=== PATIENT | female | born 1945 | race African-American/Black ===

== ENCOUNTER 2019-10-01 15:52 | IRF | payer MEDICARE, SELFPAY ==
--- NOTE | 2019-10-01 15:55 | ADMGEN ---
This patient, Sarah Ceja, was admitted to [facility] Room 219-02. Patient/family oriented to hospital policies and general routines including ID bracelet, bed and alarms, visiting hours, pain management, procedures, bathroom and other care routines, personal items, smoking policy, room service/diet, and visiting hours. Valuables list has been completed. Information on how to activate the Rapid Response Team has been discussed. Patient/Family are encouraged to report perceived risks to care and to ask questions if they do not understand what they are told or what they should do.
[2019-10-01 16:11] VITALS: BP 147/72; PULSE 92; RESP 19; TEMP 36.8; O2SAT 99; BMI 33.0
[2019-10-01 21:54] VITALS: BP 139/66; PULSE 95; RESP 20; TEMP 36.9; O2SAT 93
[2019-10-02 04:50] LABS: Basophils Percent Auto 0.5 % (0.2-1.2); Hematocrit 39.8 % (37.0-47.0); Hemoglobin 13.2 g/dL (12.0-15.0); Immature Granulocyte Absolute 0.01 K/mm3 (0.00-0.031); Immature Granulocyte Percent A 0.2 % (0-0.5); Lymphocytes Absolute Auto 1.72 K/mm3 (0.9-3.2); Lymphocytes Percent Auto 26.6 % (18.3-44.2); Mean Corpuscular HGB Conc 33.2 g/dl (32-36); Mean Corpuscular Hemoglobin 28.6 pg (26-34); Mean Corpuscular Volume 86.3 fl (80-100); Mean Platelet Volume 9.9 fl (7.4-10.4); Monocytes Absolute Auto 0.5 K/mm3 (0.1-0.6); Monocytes Percent Auto 7.3 % (2.6-8.5); Neutrophils Absolute Auto 4.2 K/mm3 (1.3-6.7); Neutrophils Percent Auto 65.4 % (45.5-73.1); Platelet Count Result 155 k/mm3 (150-375); Red Blood Count 4.61 M/mm3 (4.2-5.4); Red Cell Distribution Width 14.9 % (11.5-14.5); White Blood Count 6.5 K/mm3 (4.5-10.0)
[2019-10-02 05:08] LABS: Blood Urea Nitrogen 22 mg/dL (7-17); Calcium 8.8 mg/dL (8.4-10.2); Carbon Dioxide 26 mmol/L (22-30); Chloride 105 mmol/L (98-107); Cholesterol 146 mg/dL (0-200); Estimated CRCL calculation 53 ml/min; Estimated Glomerular Filt Rate > 60; Glucose 101 mg/dL (65-105); HDL Direct 37 mg/dL; Sodium 139 mmol/L (137-145); Triglycerides 49 mg/dL (<150)
[2019-10-02 05:18] LABS: LDL Cholesterol Direct 90 mg/dL
[2019-10-02 06:00] VITALS: BP 127/66; PULSE 80; RESP 20; TEMP 36.6; O2SAT 99
[2019-10-02] MEDS: AMLODIPINE BESYLATE 5 MG TABLET PO (09:45)
--- NOTE | 2019-10-02 11:30 | WPDREHABHP ---
H&P: HPI History of Present Illness Chief complaint: stroke Narrative: Sarah Chun OF PRESENT ILLNESS: The patient's primary rehab impairment category is 0 1-stool The etiologic diagnosis is left basal ganglia /thalamic intracranial hemorrhage with intraventricular extension/hemorrhage I saw this patient [id number] on October 02, 2019 at 11:30 a.m. and The patient is a 73-year-old right-handed Afro [place] woman with a past medical history of hypertension ( not needing medication ) who presented to a local hospital with slurring of the speech and right-sided weakness. Daughter reported the patient was found on the ground outside her house. The head CT demonstrated an intraparenchymal hemorrhage with intraventricular extension. She was transferred to [facility] on September 24, 2019. Repeat CT confirmed hemorrhage involving the left sheppard radiata, left basal ganglia, and thalamic hemorrhage with intraventricular extension, minimal rightward shift and mild mass effect. CTA showed no evidence of vascular abnormality predated Neurosurgery and Neurology were consulted. Neurology place the patient on Keppra 500 milligram twice a day for seizure prophylaxis. She was also started on a new antihypertensive medication. Neurosurgery admitted the patient to ICU for neuro checks and hydrocephalus watch. Patient was eventually taken off of seizure prophylaxis. She passed her bedside swallow test and is on a regular diet. She will need monitoring of blood pressure in the setting of new blood pressure medications with possible adverse reactions. Neurological function needs to be monitor in the setting of brain hemorrhage for possible extension, edema, and/or herniation. Physical examination continues to reveal right-sided weakness balance impairment dysarthria expressive aphasia decreased gross motor control and decreased safety awareness. This examiner has to look into the chart further were kind of DVT prophylaxis [facility] was giving it to her Therapy was initiated at the acute care facility and the patient transferred to us from [facility] on October 01, 2019 on October 01, 2019 FALLS OR SURGERIES: The patient has had no major surgeries in the 100 days prior to admission. They had no falls in the past year. They had no falls with injury in the past year. PAST MEDICAL HISTORY: hypertension PAST SURGICAL HISTORY: total hip arthroplasty SOCIAL HISTORY: the patient lives independently in a 1 level home with 5 steps to enter. She was completely independent prior and uses single-point cane for ambulation only to go up and down stairs. Her daughters were present for interview with the patient was screened and can assist patient following rehabilitation if necessary. The patient had a fall this hospitalization but no major surgeries. FAMILY HISTORY: Will be obtained from the family members when they are available PRIOR LEVEL OF FUNCTION: Eating was INDEPENDENT Oral Care was INDEPENDENT Toileting Hygiene was INDEPENDENT Shower/Bathing was INDEPENDENT Upper Body Dressing was INDEPENDENT Lower Body Dressing was INDEPENDENT Donning/[place] Footwear was INDEPENDENT Rolling Left and Right was INDEPENDENT Sit to Lying was INDEPENDENT Lying to Sitting was INDEPENDENT Sit to Stand was INDEPENDENT Bed to Chair Transfers was INDEPENDENT Toilet Transfers was INDEPENDENT Walking was INDEPENDENT 750 feet with NO DEVICE Wheelchair Mobility was NOT APPLICABLE PRIOR TO ADMISSION Stairs were INDEPENDENT CURRENT LEVEL OF FUNCTION: Eating was independent Oral Care was partial or more assistance Toileting Hygiene was partial or more assistance Shower/Bathing was substantial/maximal assistance Upper Body Dressing was partial or more assistance Lower Body Dressing was substantial/maximal assistance Donning/[place] Footwear was dependent Rolling Left and Right was partial
[2019-10-02 14:00] VITALS: BP 132/73; PULSE 89; RESP 22; TEMP 36.6; O2SAT 100
[2019-10-02 14:02] VITALS: BMI 33.0
--- NOTE | 2019-10-02 15:14 | PCCCNOTE ---
On 10/02/19, the student, [Lino Camarena ], provided care and completed [facility] documentation on this patient. I have reviewed the student's documentation and agree with the findings.
[2019-10-02 21:44] VITALS: BP 130/76; PULSE 90; RESP 18; TEMP 36.3; O2SAT 99
[2019-10-03 05:59] VITALS: BP 129/75; PULSE 84; RESP 18; TEMP 36.2; O2SAT 99
[2019-10-03] MEDS: AMLODIPINE BESYLATE 5 MG TABLET PO (09:14)
--- NOTE | 2019-10-03 13:21 | P.PNNERE_ITS ---
Subjective Date/time seen: 10/03/19 13:21 Interval history: patient is here with the left hemispheric stroke with right- sided moderately severe hemiparesis along with expressive aphasia She does not have any new neurological complaints in particular she denies any headache chest pain shortness of breath double vision blurred vision fever chills sore throat abdominal pain or diarrhea Review of Systems Review of Systems: All systems reviewed & are unremarkable except as noted in HPI and below Exam Const: General: comfortable and no acute distress HENMT: General nose exam: Normal nares present Mouth: Yes moist mucous membranes Eyes: General: appearance normal, both eyes and all related structures Neck: Neck: supple and no JVD Resp: Effort & Inspection: normal respiratory effort Auscultation: clear to auscultation bilaterally Cardio: Rate: regular rate Rhythm: regular rhythm GI: GI Palp: Yes Soft to palpation Auscultation: normal bowel sounds Skin: General skin exam: normal color and no rashes or lesions noted Neuro: Other: patient is awake and alert and well oriented does have expressive aphasia and right-sided moderately severe hemiparesis Extrem: General: normal to inspection Objective Data Vital Signs Vital Signs: Vital Signs - 24 hr 10/02/19 14:00 10/02/19 21:44 10/03/19 05:59 Temperature 36.6 C 36.3 C L 36.2 C L Pulse Rate 89 90 84 Respiratory Rate 22 H 18 18 Blood Pressure 132/73 130/76 129/75 Pulse Oximetry 100 99 99 Intake/Output Intake/Output: Intake & Output 09/30/19 10/01/19 10/02/19 10/03/19 23:59 23:59 23:59 23:59 Intake Total 240 240 240 Balance 240 240 240 Meds/Results Medications: Active Medications Generic Name Dose Route Start Last Admin Trade Name Freq PRN Reason Stop Dose Admin Acetaminophen 650 mg 10/01/19 17:30 Tylenol Tablet PO Q6H PRN Pain Amlodipine Besylate 5 mg 10/02/19 09:00 10/03/19 09:14 Norvasc PO 5 mg DAILY PAYTON Administration Bisacodyl 10 mg 10/01/19 17:30 Dulcolax Suppository RECTAL DAILY PRN Constipation Progress Note: A&P Assessment and Plan (1) Hypertension: Code(s): I10 - Essential (primary) hypertension Status: Acute (2) Hemiparesis of right dominant side: Code(s): G81.91 - Hemiplegia, unspecified affecting right dominant side Status: Acute (3) Expressive aphasia: Code(s): R47.01 - Aphasia Status: Acute (4) Intracranial hemorrhage: Code(s): I62.9 - Nontraumatic intracranial hemorrhage, unspecified Status: Acute Additional Plan continue present medical management physical therapy is speech therapy and occupational therapy along with gait training
[2019-10-03 14:00] VITALS: BP 136/68; PULSE 82; RESP 18; TEMP 36.3; O2SAT 96
--- NOTE | 2019-10-03 16:11 | RPD ---
INDIVIDUALIZED PLAN OF CARE FOR Sarah Ceja Brief Synthesis of Pre-Admission Screen, Post-Admission Evaluation and Therapy Evaluations: The patient presents to rehab with right basal ganglia/thalamic intracranial hemorrhage with intraventricular hemorrhage. Comorbidities include hypertension, dysarthria, hyperlipidemia, weakness. The patient requires physician services for neurology services, medical oversight, and coordination of care. The patient needs physician monitoring and treatment of new hypertension, monitoring for adverse reactions to new medications, cerebral edema, monitoring for infection, and pain control. The patient requires nursing services for frequent neuro checks, anticoagulation therapy, medication management and education, pressure relief and skin care management, monitoring of labs, and education, and fall/safety precautions. Deficits include:ADLs, Balance, Endurance, Mobility, Pain Management, ROM, Safety, Speech, Strength, Transfers Seo Assistant/Case Management for: Discharge Planning and Patient/Family Counseling Physical Therapy: 5 days per week for 75 minutes. Treatments may include: Therapeutic Exercise, Gait Training, Neuromuscular Re-education, Transfer Training, Community Reintegration, Bed Mobility, Patient/Family Education, Wheelchair Mobility Group Therapy/Concurrent Therapy Rationales: -Improve attention span during functional activities in a distracted environment. -Enhance problem solving and/or adequate judgment skills during functional activities in a distracted environment. -Promote increased safety awareness in a distracted environment to reduce fall risk with functional tasks, transfers, and ambulation to allow a more safe, self-sufficient return to the home environment. -Improve dynamic balance skills to promote safety and independence with functional activities in a distracted environment for maximum gain. Occupational Therapy: 5 days per week for 75 minutes. Treatments may include: Therapeutic Exercise, Therapeutic Activity, Cognitive Training, Self-Care Transfer Training, Community Reintegration, Home Management, Patient/Family Education, Wheelchair Mobility Training, Energy Conservation Training Group Therapy/Concurrent Therapy Rationales: -Allow therapist to observe and teach generalization and carry-over of skills learned in individual therapy. -Enhance problem solving and sequencing skills during therapeutic activities in a distracted environment. -Promote increased safety awareness in a realistic setting to reduce fall risk with functional tasks due to visual and verbal distractions. -Increase functional level with ADLs, ADL transfers and use of adaptive equipment through therapeutic activities with others while promoting safety to allow a more safe, self-sufficient return home. Speech Therapy: 5 days per week for 30 minutes. Treatments may include: Dysphasia Therapy, Speech/Language/Communication Therapy, Cognitive Training, Patient/Family Education Group Therapy/Concurrent Therapy - Rationale: -Allow therapist to observe and teach generalization and carry-over of skills learned in individual therapy. -Improve comprehension skills with complex or abstract ideas through discussion in a realistic setting. -Enhance problem solving skills with complex issues during activities in a distracted environment. -Promote increased memory skills and concentration in a distracted environment for a safe transition home. -Improve attention and focus with language/communication skills in a realistic and supportive therapeutic setting. -Allow for practice of expression of basic needs and ideas through functional activities with others. Medical Prognosis: Good Anticipated Length of Stay: 12 days Rehab Goals: Eating Goal: 06-Independent Oral Hygiene Goal: 06-Independent Toileting Hygiene Goal: 03-Partial/Moderate Assistance Shower/Bathe Self Goal: 03-Partial/Moderate Assistance Upper Body Dressing Goal: 05-Se
[2019-10-03 21:14] VITALS: BP 128/70; PULSE 91; RESP 16; TEMP 36.8; O2SAT 98
[2019-10-04 06:00] VITALS: BP 128/79; PULSE 83; RESP 16; TEMP 36.5; O2SAT 100
[2019-10-04] MEDS: AMLODIPINE BESYLATE 5 MG TABLET PO (08:23)
--- NOTE | 2019-10-04 12:03 | WPDNEURORHBP ---
Subjective Date/time seen: 10/04/19 12:03 Interval history: this 73-year-old woman is here because of left-sided intracranial hemorrhage with right-sided hemiparesis and expressive aphasia she is doing fairly well denies any headache nausea vomiting chest pain shortness of breath fever chills sore throat she is quite motivated engage in therapy Review of Systems Review of Systems: All systems reviewed & are unremarkable except as noted in HPI and below Constitutional: Constitutional: Reports no additional constitutional complaints Eyes: Eyes: Reports no additional eye complaints ENT: Reports system reviewed and no additional complaints, except as documented Cardiovascular: Cardiovascular: Reports no additional cardiovascular complaints Respiratory: Respiratory: Reports no additional respiratory complaints Gastrointestinal: Gastrointestinal: Reports no additional gastrointestinal complaints Genitourinary: Genitourinary: Reports no additional female genitourinary complaints Musculoskeletal: Musculoskeletal: Reports no additional musculoskeletal complaints Integumentary/Breasts: Skin/Breast: Reports system reviewed and no additional complaints, except as docu Neurologic: Reports system reviewed and no additional complaints, except as documented Psychiatric: Psychiatric: Reports no additional psychiatric complaints Exam Const: General: comfortable and no acute distress HENMT: General nose exam: Normal nares present Mouth: Yes moist mucous membranes Eyes: General: appearance normal, both eyes and all related structures Neck: Neck: supple and no JVD Resp: Effort & Inspection: normal respiratory effort Auscultation: clear to auscultation bilaterally Cardio: Rate: regular rate Rhythm: regular rhythm GI: GI Palp: Yes Soft to palpation Auscultation: normal bowel sounds Skin: General skin exam: normal color and no rashes or lesions noted Neuro: Other: patient is awake alert will oriented time place and person but has expressive aphasia and right-sided artie paresis due to intracranial hemorrhage of the left cerebral hemisphere Objective Data Vital Signs Vital Signs: Vital Signs - 24 hr 10/03/19 14:00 10/03/19 21:14 10/04/19 06:00 Temperature 36.3 C L 36.8 C 36.5 C Pulse Rate 82 91 83 Respiratory Rate 18 16 16 Blood Pressure 136/68 128/70 128/79 Pulse Oximetry 96 98 100 Intake/Output Intake/Output: Intake & Output 10/01/19 10/02/19 10/03/19 10/04/19 23:59 23:59 23:59 23:59 Intake Total 240 240 720 120 Balance 240 240 720 120 Meds/Results Medications: Active Medications Generic Name Dose Route Start Last Admin Trade Name Freq PRN Reason Stop Dose Admin Acetaminophen 650 mg 10/01/19 17:30 Tylenol Tablet PO Q6H PRN Pain Amlodipine Besylate 5 mg 10/02/19 09:00 10/04/19 08:23 Norvasc PO 5 mg DAILY PAYTON Administration Bisacodyl 10 mg 10/01/19 17:30 Dulcolax Suppository RECTAL DAILY PRN Constipation Polyethylene Glycol 17 gm 10/04/19 09:00 Miralax PO QAM PAYTON Progress Note: A&P Assessment and Plan (1) Hypertension: Code(s): I10 - Essential (primary) hypertension Status: Acute (2) Hemiparesis of right dominant side: Code(s): G81.91 - Hemiplegia, unspecified affecting right dominant side Status: Acute (3) Expressive aphasia: Code(s): R47.01 - Aphasia Status: Acute (4) Intracranial hemorrhage: Code(s): I62.9 - Nontraumatic intracranial hemorrhage, unspecified Status: Acute Additional Plan will continue with the speech therapy physical therapy of compression therapy and gait training
[2019-10-04] MEDS: polyethylene glycoL 3350 17 GM POWD.PACK PO (12:16)
[2019-10-04 14:00] VITALS: BP 122/70; PULSE 96; RESP 18; TEMP 36.8; O2SAT 100
--- NOTE | 2019-10-04 15:53 | PCCCNOTE ---
On 10/04/19, the student, [Lion Camarena ], provided care and completed [facility] documentation on this patient. I have reviewed the student's documentation and agree with the findings.
[2019-10-04 21:55] VITALS: BP 126/75; PULSE 97; RESP 20; TEMP 36.7; O2SAT 100
[2019-10-05 06:00] VITALS: BP 132/75; PULSE 84; RESP 18; TEMP 36.7; O2SAT 98
[2019-10-05] MEDS: polyethylene glycoL 3350 17 GM POWD.PACK PO (08:50)
[2019-10-05] MEDS: AMLODIPINE BESYLATE 5 MG TABLET PO (08:53)
[2019-10-05 14:00] VITALS: BP 146/78; PULSE 86; RESP 18; TEMP 36.5; O2SAT 98
--- NOTE | 2019-10-05 16:30 | WPDNEURORHBP ---
Subjective Date/time seen: feeling ok continues to have npcgyat46/21/20 16:30 Review of Systems Review of Systems: All systems reviewed & are unremarkable except as noted in HPI and below Exam Const: General: comfortable and no acute distress HENMT: Head: normal to inspection General nose exam: Normal nares present, No nasal discharge present and Abnormal mucous membranes and turbinates present Neck: Neck: full ROM Thyroid: thyroid normal Resp: Effort & Inspection: normal respiratory effort Auscultation: clear to auscultation bilaterally Cardio: Rate: regular rate Rhythm: regular rhythm GI: Auscultation: normal bowel sounds Skin: General skin exam: no rashes or lesions noted Neuro: General: oriented to person, oriented to place and moves all extremities Cranial nerves: Yes Equal, round and reactive pupils present, Yes Bilaterally intact EOM present, Yes Nystagmus not present, Yes Normal facial strength present, Yes Midline tongue present, Yes Symmetric palate elevation present, Yes Ability to bilaterally rotate head present and Yes Ability to bilaterally elevate shoulders present Cognition (Neuro): normal cognition Speech: normal speech (aphasia) Motor exam (neuro): 5/5 motor strength present throughout (right hemiparesis) and Motor abnormalities not present Sensory Exam: Sensory deficit (Neuro) (right sided) Deep tendon reflexes (DTR's): Right triceps reflex intensity grade: 2+, Rt Biceps (C5, C6): 2+, Right brachioradialis reflex intensity grade: 2+, Right patellar reflex intensity grade: 2+ and Right ankle reflex intensity grade: 2+ Plantar Reflex Responses: upgoing (positive Babinski): right Psych: Appearance: grossly normal Objective Data Vital Signs Vital Signs: Vital Signs - 24 hr 10/04/19 21:55 10/05/19 06:00 10/05/19 14:00 Temperature 36.7 C 36.7 C 36.5 C Pulse Rate 97 84 86 Respiratory Rate 20 18 18 Blood Pressure 126/75 132/75 146/78 H Pulse Oximetry 100 98 98 Intake/Output Intake/Output: Intake & Output 10/02/19 10/03/19 10/04/19 10/05/19 23:59 23:59 23:59 23:59 Intake Total 240 720 360 480 Balance 240 720 360 480 Meds/Results Medications: Active Medications Generic Name Dose Route Start Last Admin Trade Name Freq PRN Reason Stop Dose Admin Acetaminophen 650 mg 02/17/20 17:30 Tylenol Tablet PO Q6H PRN Pain Amlodipine Besylate 5 mg 10/02/19 09:00 10/05/19 08:53 Norvasc PO 5 mg DAILY PAYTON Administration Bisacodyl 10 mg 10/01/19 17:30 Dulcolax Suppository RECTAL DAILY PRN Constipation Polyethylene Glycol 17 gm 10/04/19 09:00 10/05/19 08:50 Miralax PO 17 gm QAM PAYTON Administration Progress Note: A&P Assessment and Plan (1) Hypertension: Code(s): I10 - Essential (primary) hypertension Status: Acute (2) Hemiparesis of right dominant side: Code(s): G81.91 - Hemiplegia, unspecified affecting right dominant side Status: Acute (3) Expressive aphasia: Code(s): R47.01 - Aphasia Status: Acute (4) Intracranial hemorrhage: Code(s): I62.9 - Nontraumatic intracranial hemorrhage, unspecified Status: Acute Additional Plan stable
[2019-10-05 22:00] VITALS: BP 126/62; PULSE 94; RESP 18; TEMP 36.9; O2SAT 100
[2019-10-06 06:00] VITALS: BP 126/68; PULSE 78; RESP 18; TEMP 36.7; O2SAT 97
[2019-10-06] MEDS: polyethylene glycoL 3350 17 GM POWD.PACK PO (08:50)
[2019-10-06] MEDS: AMLODIPINE BESYLATE 5 MG TABLET PO (08:50)
[2019-10-06 14:00] VITALS: BP 141/67; PULSE 96; RESP 18; TEMP 36.6; O2SAT 98
[2019-10-06 21:57] VITALS: BP 128/77; PULSE 93; RESP 18; TEMP 36.6; O2SAT 98
[2019-10-07 06:00] VITALS: BP 118/56; PULSE 78; RESP 18; TEMP 36.6; O2SAT 96
[2019-10-07] MEDS: AMLODIPINE BESYLATE 5 MG TABLET PO (08:50)
[2019-10-07] MEDS: polyethylene glycoL 3350 17 GM POWD.PACK PO (08:50)
[2019-10-07 14:00] VITALS: BP 116/59; PULSE 94; RESP 16; TEMP 36.8; O2SAT 98
[2019-10-07 21:13] VITALS: BP 124/68; PULSE 77; RESP 16; TEMP 36.3; O2SAT 99
[2019-10-08 06:00] VITALS: BP 114/65; PULSE 84; RESP 16; TEMP 36.7; O2SAT 98
[2019-10-08] MEDS: AMLODIPINE BESYLATE 5 MG TABLET PO (08:30)
[2019-10-08] MEDS: polyethylene glycoL 3350 17 GM POWD.PACK PO (08:30)
--- NOTE | 2019-10-08 13:30 | PCDIET ---
Nutrition Follow-Up Complete: Suboptimal oral intake related to decreased appetite as evidenced by intake of 25% x 1, patient statements. Patient to consume 50% of meals or more Goal met. Pt consuming average of 73% of meals since 10/02. Nutrition recommendation: Recommend continuation of Regular diet to maximize pt's PO intake. Last recorded weight is 90 kg. Bowel Motility:+BM 10/06 (Incontinent at times) Labs Reviewed:(From 10/02) - Na(139), BUN(22), Cr(0.9), Glu(101) Meds Noted:Miralax, norvasc Additional Notes: Pt states appetite is good and GI related complaints. Will provide CVA ed prior to discharge. Follow up in 3 days.
[2019-10-08 14:00] VITALS: BP 118/70; PULSE 103; RESP 16; TEMP 36.6; O2SAT 98
--- NOTE | 2019-10-08 14:49 | PCNSR ---
On 10/08/19, the student, Jessenia Abel, provided care and completed [facility] documentation on this patient. I have reviewed the student's documentation and agree with the findings.
[2019-10-08 22:00] VITALS: BP 148/56; PULSE 73; RESP 18; TEMP 36.8; O2SAT 96
[2019-10-09 05:37] LABS: Basophils Percent Auto 0.2 % (0.2-1.2); Hematocrit 38.3 % (37.0-47.0); Immature Granulocyte Absolute 0.02 K/mm3 (0.00-0.031); Immature Granulocyte Percent A 0.4 % (0-0.5); Lymphocytes Absolute Auto 1.76 K/mm3 (0.9-3.2); Lymphocytes Percent Auto 31.6 % (18.3-44.2); Mean Corpuscular HGB Conc 31.3 g/dl (32-36); Mean Corpuscular Hemoglobin 27.8 pg (26-34); Mean Corpuscular Volume 88.9 fl (80-100); Mean Platelet Volume 10.3 fl (7.4-10.4); Monocytes Absolute Auto 0.5 K/mm3 (0.1-0.6); Monocytes Percent Auto 8.1 % (2.6-8.5); Neutrophils Absolute Auto 3.3 K/mm3 (1.3-6.7); Neutrophils Percent Auto 59.7 % (45.5-73.1); Platelet Count Result 160 k/mm3 (150-375); Red Blood Count 4.31 M/mm3 (4.2-5.4); Red Cell Distribution Width 14.6 % (11.5-14.5); White Blood Count 5.6 K/mm3 (4.5-10.0)
[2019-10-09 05:49] LABS: Blood Urea Nitrogen 17 mg/dL (7-17); Calcium 8.5 mg/dL (8.4-10.2); Carbon Dioxide 28 mmol/L (22-30); Chloride 105 mmol/L (98-107); Estimated CRCL calculation 52 ml/min; Estimated Glomerular Filt Rate > 60; Glucose 99 mg/dL (65-105); Potassium 4.1 mmol/L (3.4-5.0); Sodium 141 mmol/L (137-145)
[2019-10-09 06:00] VITALS: BP 123/56; PULSE 68; RESP 18; TEMP 36.7; O2SAT 97
[2019-10-09] MEDS: AMLODIPINE BESYLATE 5 MG TABLET PO (07:45)
[2019-10-09] MEDS: polyethylene glycoL 3350 17 GM POWD.PACK PO (07:45)
--- NOTE | 2019-10-09 12:56 | WPDNEURORHBP ---
Subjective Date/time seen: 10/09/19 12:56 Interval history: this 74-year-old woman is on the acute rehab after having had intracranial hemorrhage which had left her with expressive aphasia and moderately severe were right-sided hemiparesis she is doing fairly well does not have any new specific complaints however I checked out that the patient is supposed to be on Lovenox for DVT prophylaxis which was not continued by the transferring facility however it was the intent according to our screening process The patient denies any headache chest pain or shortness of breath fever chills or sore throat Review of Systems Review of Systems: All systems reviewed & are unremarkable except as noted in HPI and below Functional Status Ambulation Ability Ambulation Assistive Devices: Walker, Standard Exam Const: General: comfortable and no acute distress HENMT: General nose exam: Normal nares present Mouth: Yes moist mucous membranes Eyes: General: appearance normal, both eyes and all related structures Neck: Neck: supple and no JVD Resp: Effort & Inspection: normal respiratory effort Auscultation: clear to auscultation bilaterally Cardio: Rate: regular rate Rhythm: regular rhythm GI: GI Palp: Yes Soft to palpation Auscultation: normal bowel sounds Skin: General skin exam: normal color and no rashes or lesions noted Neuro: Other: improving neurological deficit which is expressive aphasia and moderately severe right-sided hemiparesis Extrem: General: normal to inspection Objective Data Vital Signs Vital Signs: Vital Signs - 24 hr 10/08/19 14:00 10/08/19 22:00 10/09/19 06:00 Temperature 36.6 C 36.8 C 36.7 C Pulse Rate 103 H 73 68 Respiratory Rate 16 18 18 Blood Pressure 118/70 148/56 H 123/56 L Pulse Oximetry 98 96 97 Intake/Output Intake/Output: Intake & Output 10/06/19 10/07/19 10/08/19 10/09/19 23:59 23:59 23:59 23:59 Intake Total 600 1080 600 240 Balance 600 1080 600 240 Meds/Results Medications: Active Medications Generic Name Dose Route Start Last Admin Trade Name Freq PRN Reason Stop Dose Admin Acetaminophen 650 mg 10/01/19 17:30 Tylenol Tablet PO Q6H PRN Pain Amlodipine Besylate 5 mg 10/02/19 09:00 10/09/19 07:45 Norvasc PO 5 mg DAILY PAYTON Administration Bisacodyl 10 mg 10/01/19 17:30 Dulcolax Suppository RECTAL DAILY PRN Constipation Polyethylene Glycol 17 gm 10/04/19 09:00 10/09/19 07:45 Miralax PO 17 gm QAM PAYTON Administration Labs Labs: Laboratory Results - last 24 hr 10/09/19 10/09/19 05:18 05:18 WBC 5.6 RBC 4.31 Hgb 12.0 Hct 38.3 MCV 88.9 MCH 27.8 MCHC 31.3 L RDW 14.6 H Plt Count 160 MPV 10.3 Immature Gran % (Auto) 0.4 Neut % (Auto) 59.7 Lymph % (Auto) 31.6 Forest % (Auto) 8.1 Eos % (Auto) 0.0 Baso % (Auto) 0.2 Lymph # (Auto) 1.76 Forest # (Auto) 0.5 Eos # (Auto) 0.0 Baso # (Auto) 0.0 Abs Immat Gran (auto) 0.02 Absolute Neuts (auto) 3.3 Absolute Nucleated RBC 0.0 Nucleated RBC % 0.0 Sodium 141 Potassium 4.1 Chloride 105 Carbon Dioxide 28 BUN 17 Creatinine 0.90 Estim Creat Clear Calc 52 Estimated GFR > 60 Glucose 99 Calcium 8.5 Progress Note: A&P Assessment and Plan (1) Hypertension: Code(s): I10 - Essential (primary) hypertension Status: Acute (2) Hemiparesis of right dominant side: Code(s): G81.91 - Hemiplegia, unspecified affecting right dominant side Status: Acute (3) Expressive aphasia: Code(s): R47.01 - Aphasia Status: Acute (4) Intracranial hemorrhage: Code(s): I62.9 - Nontraumatic intracranial hemorrhage, unspecified Status: Acute Additional Plan discussed in the team conference in the presence of daughter and granddaughter all questions were answered tentative discharge planning for October 24, 2019 we will start the DVT prophylaxis with Lovenox 40 milligram subcu
[2019-10-09] MEDS: ENOXAPARIN 40 MG/0.4 ML SYRINGE SUB-Q (13:53)
[2019-10-09 14:00] VITALS: BP 123/69; PULSE 97; RESP 18; TEMP 36.4; O2SAT 100
--- NOTE | 2019-10-09 14:02 | PCCCNOTE ---
On 10/09/19, the student, [Lion Camarena ], provided care and completed [facility] documentation on this patient. I have reviewed the student's documentation and agree with the findings.
[2019-10-09 19:39] VITALS: PULSE 97; RESP 18; O2SAT 100
[2019-10-09 22:00] VITALS: BP 115/50; PULSE 89; RESP 18; TEMP 36.7; O2SAT 100
[2019-10-10 06:00] VITALS: BP 122/71; PULSE 83; RESP 18; TEMP 36.2; O2SAT 96
[2019-10-10] MEDS: AMLODIPINE BESYLATE 5 MG TABLET PO (07:55)
[2019-10-10] MEDS: polyethylene glycoL 3350 17 GM POWD.PACK PO (07:56)
--- NOTE | 2019-10-10 12:16 | PCPTNOTE ---
Sarah Ceja was evaluated for a wheeled walker on 10/10/2019 by this physical therapist fire control assistant. The wheeled walker will resolve patient's mobility limitations and will be used for ADL's within the home. The patient can safely use the wheeled walker. ?The wheeled walker will resolve the patient?s mobility deficits, including decreased right lower extremity strength and decreased balance.
--- NOTE | 2019-10-10 12:19 | PCPTNOTE ---
Addendum entered by Terri Morales PTA 10/24/19 12:18: Patient requires 20 x20 manual wheelchair width due to patient's anatomical hip width of 19 and unable to fit in a standard-sized manual wheelchair. Original Note: Terri Morales PTA completed an inpatient rehab wheelchair evaluation on Sarah Ceja on 10/10/2019. The patient is unable to safely and independently ambulate household distances due to their current impairments. Their diagnosis is stroke and their impairments include decreased strength, decreased endurance, decreased range of motion, decreased balance and lower extremity weakness. Sarah's weight bearing status is weight-bearing as tolerated on the bilateral lower legs. The patient demonstrates significant functional mobility limitations that impair their ability to participate in mobility-related activities of daily living (MRADLs), including toileting, feeding, dressing, grooming, and bathing in the customary locations in the home. These limitations cannot be sufficiently resolved by the use of an appropriately fitted cane or walker. It is recommended that the patient utilize a wheelchair for functional mobility within the home in order to facilitate optimal safety, independence and participation in all MRADL's and adequately access their home environment on a regular basis. The patient's home provides adequate access between rooms, maneuvering space, and surfaces to accommodate the recommended wheelchair. The use of a wheelchair for functional mobility is strongly recommended and the patient is receptive to using the wheelchair. The use of this wheelchair will significantly improve the patient's ability to participate in MRADLS and the patient will use it on a regular basis in the home. This will facilitate optimal safety, independence, and participation. The patient has demonstrated sufficient physical and mental capabilities needed to safely propel a manual wheelchair that is provided in the home during a typical day. Recommended Wheelchair Frame: 20x20 Recommended Wheelchair Size: standard Recommended Wheelchair Cushion:standard Wheelchair Leg Recommendations: swing away elevating leg rests - Elevating legrests are recommended because the patient has significant edema of the lower extremities that requires an elevating legrest. -Anti-tippers are recommended due to patient demonstrating increased risk for falls. They would benefit from anti-tippers with added safety and stabilization. -Adjustable arm height is recommended because the patient requires an arm height that is different than that which is available using non-adjustable arms. The patient spends at least 2 hours per day in the wheelchair. Terri Carmen 10-10-2019 Evaluating Therapist Date I agree with and certify that the above recommendation is medically necessary. Referring Physician Date I agree with and certify that the above recommendation is medically necessary. Referring Physician Date
[2019-10-10 14:00] VITALS: BP 122/74; PULSE 94; RESP 16; TEMP 36.6; O2SAT 100
[2019-10-10] MEDS: ENOXAPARIN 40 MG/0.4 ML SYRINGE SUB-Q (14:06)
--- NOTE | 2019-10-10 14:19 | WPDNEURORHBP ---
Subjective Date/time seen: 10/10/19 14:19 Interval history: this 74-year-old woman is here for the right hemispheric stroke with left-sided hemiparesis and doing fairly well engage in therapy does not have any specific complaints in particular no fever no chills no sore throat no nausea vomiting abdominal pain or any new neurological symptoms Review of Systems Review of Systems: All systems reviewed & are unremarkable except as noted in HPI and below Functional Status Ambulation Ability Ability to Ambulate 10 Feet: Moderate Assistance X 1 Ambulation Assistive Devices: Walker, Wheeled Exam Const: General: comfortable and no acute distress HENMT: General nose exam: Normal nares present Mouth: Yes moist mucous membranes Eyes: General: appearance normal, both eyes and all related structures Neck: Neck: supple and no JVD Resp: Effort & Inspection: normal respiratory effort Auscultation: clear to auscultation bilaterally Cardio: Rate: regular rate Rhythm: regular rhythm GI: GI Palp: Yes Soft to palpation Auscultation: normal bowel sounds Skin: General skin exam: normal color and no rashes or lesions noted Neuro: Other: patient is awake and alert well oriented has a preserved speech 11 function however does have left-sided artie paresis needing assistance in all the activities of daily living Extrem: General: normal to inspection Psych: Mental Status: mental status grossly normal Objective Data Vital Signs Vital Signs: Vital Signs - 24 hr 10/09/19 19:39 10/09/19 22:00 10/10/19 06:00 Temperature 36.7 C 36.2 C L Pulse Rate 97 89 83 Respiratory Rate 18 18 18 Blood Pressure 115/50 L 122/71 Pulse Oximetry 100 100 96 Intake/Output Intake/Output: Intake & Output 10/07/19 10/08/19 10/09/19 10/10/19 23:59 23:59 23:59 23:59 Intake Total 1080 600 360 360 Balance 1080 600 360 360 Meds/Results Medications: Active Medications Generic Name Dose Route Start Last Admin Trade Name Freq PRN Reason Stop Dose Admin Acetaminophen 650 mg 10/01/19 17:30 Tylenol Tablet PO Q6H PRN Pain Amlodipine Besylate 5 mg 10/02/19 09:00 10/10/19 07:55 Norvasc PO 5 mg DAILY [facility] Administration Bisacodyl 10 mg 10/01/19 17:30 Dulcolax Suppository RECTAL DAILY PRN Constipation Enoxaparin Sodium 40 mg 10/09/19 14:00 10/10/19 14:06 Lovenox SUB-Q 40 mg Q24H [facility] Administration Polyethylene Glycol 17 gm 10/04/19 09:00 10/10/19 07:56 Miralax PO 17 gm QAM [facility] Administration Progress Note: A&P Assessment and Plan (1) Hypertension: Code(s): I10 - Essential (primary) hypertension Status: Acute (2) Hemiparesis of right dominant side: Code(s): G81.91 - Hemiplegia, unspecified affecting right dominant side Status: Acute (3) Expressive aphasia: Code(s): R47.01 - Aphasia Status: Acute (4) Intracranial hemorrhage: Code(s): I62.9 - Nontraumatic intracranial hemorrhage, unspecified Status: Acute Additional Plan continue medical management physical therapy of compression therapy and gait training
[2019-10-10 21:26] VITALS: BP 122/68; PULSE 89; RESP 20; TEMP 36.8; O2SAT 96
[2019-10-11 06:00] VITALS: BP 126/72; PULSE 78; RESP 16; TEMP 36.5; O2SAT 97
[2019-10-11 08:00] VITALS: PULSE 78; RESP 16; O2SAT 97
[2019-10-11] MEDS: AMLODIPINE BESYLATE 5 MG TABLET PO (08:28)
--- NOTE | 2019-10-11 09:00 | WPDNEURORHBP ---
Subjective Date/time seen: October 11, 2019 at 9:00 a.m. Interval history: this 74-year-old woman is recuperating on the acute medical floor after having had a stroke which has left her with the right-sided hemiparesis primarily involving the right lower extremity along with the speech defect she does not have any new specific complaints no headache nausea vomiting chest pain shortness of breath fever chills sore throat Review of Systems Review of Systems: All systems reviewed & are unremarkable except as noted in HPI and below Functional Status Ambulation Ability Ability to Ambulate 10 Feet: Moderate Assistance X 1 Ambulation Assistive Devices: Walker, Wheeled Exam Const: General: comfortable and no acute distress HENMT: General nose exam: Normal nares present Mouth: Yes moist mucous membranes Eyes: General: appearance normal, both eyes and all related structures Neck: Neck: supple and no JVD Resp: Effort & Inspection: normal respiratory effort Auscultation: clear to auscultation bilaterally Cardio: Rate: regular rate Rhythm: regular rhythm GI: GI Palp: Yes Soft to palpation Auscultation: normal bowel sounds Skin: General skin exam: normal color and no rashes or lesions noted Neuro: Other: patient is awake and alert well oriented is speech is improving she is able to read with some difficulty however clearly and quite understandable right-sided hemiparesis is improving Extrem: General: normal to inspection Objective Data Vital Signs Vital Signs: Vital Signs - 24 hr 10/11/19 14:00 10/11/19 22:00 10/12/19 06:00 Temperature 36.4 C 36.9 C 36.7 C Pulse Rate 78 85 82 Respiratory Rate 20 20 20 Blood Pressure 134/68 110/66 135/71 Pulse Oximetry 97 100 98 Intake/Output Intake/Output: Intake & Output 10/09/19 10/10/19 10/11/19 10/12/19 23:59 23:59 23:59 23:59 Intake Total 360 840 720 360 Balance 360 840 720 360 Meds/Results Medications: Active Medications Generic Name Dose Route Start Last Admin Trade Name Freq PRN Reason Stop Dose Admin Acetaminophen 650 mg 10/01/19 17:30 Tylenol Tablet PO Q6H PRN Pain Amlodipine Besylate 5 mg 10/02/19 09:00 10/12/19 08:29 Norvasc PO 5 mg DAILY [facility] Administration Bisacodyl 10 mg 10/01/19 17:30 Dulcolax Suppository RECTAL DAILY PRN Constipation Enoxaparin Sodium 40 mg 10/09/19 14:00 10/11/19 13:11 Lovenox SUB-Q 40 mg Q24H [facility] Administration Polyethylene Glycol 17 gm 10/04/19 09:00 10/12/19 08:30 Miralax PO Not Given QAM [facility] Progress Note: A&P Assessment and Plan (1) Hypertension: Code(s): I10 - Essential (primary) hypertension Status: Acute (2) Hemiparesis of right dominant side: Code(s): G81.91 - Hemiplegia, unspecified affecting right dominant side Status: Acute (3) Expressive aphasia: Code(s): R47.01 - Aphasia Status: Acute (4) Intracranial hemorrhage: Code(s): I62.9 - Nontraumatic intracranial hemorrhage, unspecified Status: Acute Additional Plan we will continue the speech therapy physical therapy of compression therapy along with the medical management
[2019-10-11] MEDS: ENOXAPARIN 40 MG/0.4 ML SYRINGE SUB-Q (13:11)
--- NOTE | 2019-10-11 13:13 | PCDIET ---
Nutrition Follow-Up Complete: Nutrition Diagnosis: Suboptimal oral intake related to decreased appetite as evidenced by intake of 25% x 1, patient statements. Nutrition Goal: Patient to consume 50% of meals or more Goal met. Patient consuming 75-100% of most meals on regular diet. Recommend heart healthy diet long-term to reduce risk of future stroke. Last recorded weight is 90 kg. Recommend obtaining new weight. Bowel Motility: +BM today. Labs Reviewed: 10/09/19 BMP WNL Meds Noted: Miralax, Dulcolax prn Additional Notes: No documented skin breakdown. Will continue to monitor with same goal. Nutrition Monitoring and Evaluation: Follow up in 5 days.
[2019-10-11 14:00] VITALS: BP 134/68; PULSE 78; RESP 20; TEMP 36.4; O2SAT 97
[2019-10-11 22:00] VITALS: BP 110/66; PULSE 85; RESP 20; TEMP 36.9; O2SAT 100
[2019-10-12 06:00] VITALS: BP 135/71; PULSE 82; RESP 20; TEMP 36.7; O2SAT 98
[2019-10-12] MEDS: AMLODIPINE BESYLATE 5 MG TABLET PO (08:29)
--- NOTE | 2019-10-12 12:32 | WPDNEURORHBP ---
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 and right-sided artie paresis she is improving overall and happy with the care she denies any headache nausea vomiting chest pain neck pain shortness of breath any new neurological symptoms abdominal pain diarrhea fever chills or sore throat Review of Systems Review of Systems: All systems reviewed & are unremarkable except as noted in HPI and below Functional Status Ambulation Ability Ability to Ambulate 10 Feet: Moderate Assistance X 1 Ambulation Assistive Devices: Walker, Wheeled Exam Const: General: comfortable and no acute distress HENMT: General nose exam: Normal nares present Mouth: Yes moist mucous membranes Eyes: General: appearance normal, both eyes and all related structures Neck: Neck: supple and no JVD Resp: Effort & Inspection: normal respiratory effort Auscultation: clear to auscultation bilaterally Cardio: Rate: regular rate Rhythm: regular rhythm GI: GI Palp: Yes Soft to palpation Skin: General skin exam: normal color and no rashes or lesions noted Neuro: Other: patient is speech has significantly improved likewise the right-sided weakness is also improving she is happy with the care she is receiving Extrem: General: normal to inspection Objective Data Vital Signs Vital Signs: Vital Signs - 24 hr 10/11/19 14:00 10/11/19 22:00 10/12/19 06:00 Temperature 36.4 C 36.9 C 36.7 C Pulse Rate 78 85 82 Respiratory Rate 20 20 20 Blood Pressure 134/68 110/66 135/71 Pulse Oximetry 97 100 98 Intake/Output Intake/Output: Intake & Output 10/09/19 10/10/19 10/11/19 10/12/19 23:59 23:59 23:59 23:59 Intake Total 360 840 720 360 Balance 360 840 720 360 Meds/Results Medications: Active Medications Generic Name Dose Route Start Last Admin Trade Name Freq PRN Reason Stop Dose Admin Acetaminophen 650 mg 10/01/19 17:30 Tylenol Tablet PO Q6H PRN Pain Amlodipine Besylate 5 mg 10/02/19 09:00 10/12/19 08:29 Norvasc PO 5 mg DAILY [facility] Administration Bisacodyl 10 mg 10/01/19 17:30 Dulcolax Suppository RECTAL DAILY PRN Constipation Enoxaparin Sodium 40 mg 10/09/19 14:00 10/11/19 13:11 Lovenox SUB-Q 40 mg Q24H [facility] Administration Polyethylene Glycol 17 gm 10/04/19 09:00 10/12/19 08:30 Miralax PO Not Given QAM [facility] Progress Note: A&P Assessment and Plan (1) Hypertension: Code(s): I10 - Essential (primary) hypertension Status: Acute (2) Hemiparesis of right dominant side: Code(s): G81.91 - Hemiplegia, unspecified affecting right dominant side Status: Acute (3) Expressive aphasia: Code(s): R47.01 - Aphasia Status: Acute (4) Intracranial hemorrhage: Code(s): I62.9 - Nontraumatic intracranial hemorrhage, unspecified Status: Acute Additional Plan we will continue the present medical management physical therapy of compression therapy and gait training
[2019-10-12 14:00] VITALS: BP 126/59; PULSE 102; RESP 16; TEMP 36.3; O2SAT 98
[2019-10-12] MEDS: ENOXAPARIN 40 MG/0.4 ML SYRINGE SUB-Q (14:58)
[2019-10-12 21:29] VITALS: BP 118/68; PULSE 86; RESP 20; TEMP 36.7; O2SAT 97
[2019-10-13 06:00] VITALS: BP 119/68; PULSE 81; RESP 16; TEMP 36.5; O2SAT 98
[2019-10-13] MEDS: AMLODIPINE BESYLATE 5 MG TABLET PO (09:04)
[2019-10-13 14:00] VITALS: BP 129/69; PULSE 81; RESP 17; TEMP 36.7; O2SAT 98
[2019-10-13] MEDS: ENOXAPARIN 40 MG/0.4 ML SYRINGE SUB-Q (15:31)
[2019-10-13 21:09] VITALS: BP 128/75; PULSE 85; RESP 20; TEMP 36.4; O2SAT 100
[2019-10-14 06:00] VITALS: BP 134/73; PULSE 86; RESP 16; TEMP 36.4; O2SAT 92
[2019-10-14 08:00] VITALS: PULSE 86; RESP 16; O2SAT 92
[2019-10-14] MEDS: AMLODIPINE BESYLATE 5 MG TABLET PO (08:52)
--- NOTE | 2019-10-14 13:26 | WPDNEURORHBP ---
Subjective Date/time seen: 10/14/19 13:26 Interval history: lady with thalamic bleed and aphasia with right hemiparesis stable Review of Systems Review of Systems: All systems reviewed & are unremarkable except as noted in HPI and below Functional Status Ambulation Ability Ability to Ambulate 10 Feet: Moderate Assistance X 1 Ambulation Assistive Devices: Walker, Wheeled Exam Const: General: comfortable and no acute distress HENMT: Head: normocephalic Ears: hearing grossly normal bilaterally General nose exam: Normal external nose present and No nasal discharge present Eyes: General: appearance normal, both eyes and all related structures Eyelids: eyelids normal Conjunctivae: conjunctivae normal Sclera: sclerae normal Cornea: corneas normal Pupils: Equal, round and reactive pupils present EOM: EOMs intact bilaterally Neck: Neck: full ROM and no lymphadenopathy Resp: Effort & Inspection: normal respiratory effort GI: Auscultation: normal bowel sounds Neuro: General: patient oriented x3 Cranial nerves: Yes Bilaterally intact EOM present, Yes Nystagmus not present, Yes Normal facial strength present, Yes Midline tongue present, Yes Normal hearing present and Yes Ability to bilaterally elevate shoulders present Cognition (Neuro): normal cognition (improving) Motor exam (neuro): 5/5 motor strength present throughout (right hemiparesis improving) Deep tendon reflexes (DTR's): Right triceps reflex intensity grade: 1+, Left triceps reflex intensity grade: 0, Rt Biceps (C5, C6): 1+, Left biceps reflex intensity grade: 0, Right brachioradialis reflex intensity grade: 1+, Left brachioradialis reflex intensity grade: 0, Right patellar reflex intensity grade: 1+, Left patellar reflex intensity grade: 0, Right ankle reflex intensity grade: 1+ and Left ankle reflex intensity grade: 0 Plantar Reflex Responses: downgoing: left and upgoing (positive Babinski): right Coordination: Normal rapid alternating movements of the distal upper extremity present (Neuro) (left good) Psych: Appearance: grossly normal Objective Data Vital Signs Vital Signs: Vital Signs - 24 hr 10/13/19 14:00 10/13/19 21:09 10/14/19 06:00 Temperature 36.7 C 36.4 C 36.4 C L Pulse Rate 81 85 86 Respiratory Rate 17 20 16 Blood Pressure 129/69 128/75 134/73 Pulse Oximetry 98 100 92 10/14/19 08:00 Temperature Pulse Rate 86 Respiratory Rate 16 Blood Pressure Pulse Oximetry 92 Intake/Output Intake/Output: Intake & Output 10/11/19 10/12/19 10/13/19 10/14/19 23:59 23:59 23:59 23:59 Intake Total 720 960 700 120 Balance 720 960 700 120 Meds/Results Medications: Active Medications Generic Name Dose Route Start Last Admin Trade Name Freq PRN Reason Stop Dose Admin Acetaminophen 650 mg 10/01/19 17:30 Tylenol Tablet PO Q6H PRN Pain Amlodipine Besylate 5 mg 10/02/19 09:00 10/14/19 08:52 Norvasc PO 5 mg DAILY [facility] Administration Bisacodyl 10 mg 10/01/19 17:30 Dulcolax Suppository RECTAL DAILY PRN Constipation Enoxaparin Sodium 40 mg 10/09/19 14:00 10/13/19 15:31 Lovenox SUB-Q 40 mg Q24H [facility] Administration Polyethylene Glycol 17 gm 10/04/19 09:00 10/14/19 08:52 Miralax PO Not Given QAM [facility] Progress Note: A&P Assessment and Plan (1) Hypertension: Code(s): I10 - Essential (primary) hypertension Status: Acute (2) Hemiparesis of right dominant side: Code(s): G81.91 - Hemiplegia, unspecified affecting right dominant side Status: Acute (3) Expressive aphasia: Code(s): R47.01 - Aphasia Status: Acute (4) Intracranial hemorrhage: Code(s): I62.9 - Nontraumatic intracranial hemorrhage, unspecified Status: Acute Additional Plan stabl improving
[2019-10-14 14:24] VITALS: BP 116/66; PULSE 95; RESP 18; TEMP 36.8; O2SAT 100
[2019-10-14] MEDS: ENOXAPARIN 40 MG/0.4 ML SYRINGE SUB-Q (16:00)
[2019-10-14 22:00] VITALS: BP 125/75; PULSE 95; RESP 18; TEMP 37.2; O2SAT 96
[2019-10-15 06:00] VITALS: BP 121/71; PULSE 86; RESP 17; TEMP 36.7; O2SAT 98
[2019-10-15] MEDS: AMLODIPINE BESYLATE 5 MG TABLET PO (08:42)
[2019-10-15] MEDS: polyethylene glycoL 3350 17 GM POWD.PACK PO (08:43)
[2019-10-15 14:00] VITALS: BP 115/75; PULSE 104; RESP 18; TEMP 36.3; O2SAT 100
[2019-10-15] MEDS: ENOXAPARIN 40 MG/0.4 ML SYRINGE SUB-Q (15:27)
[2019-10-15 22:00] VITALS: BP 133/62; PULSE 94; RESP 18; TEMP 37.1; O2SAT 99
[2019-10-16 05:10] LABS: Basophils Percent Auto 0.4 % (0.2-1.2); Hemoglobin 12.2 g/dL (12.0-15.0); Immature Granulocyte Absolute 0.02 K/mm3 (0.00-0.031); Immature Granulocyte Percent A 0.4 % (0-0.5); Lymphocytes Absolute Auto 1.64 K/mm3 (0.9-3.2); Lymphocytes Percent Auto 31.4 % (18.3-44.2); Mean Corpuscular Volume 87.9 fl (80-100); Mean Platelet Volume 10.2 fl (7.4-10.4); Monocytes Absolute Auto 0.4 K/mm3 (0.1-0.6); Monocytes Percent Auto 8.2 % (2.6-8.5); Neutrophils Absolute Auto 3.1 K/mm3 (1.3-6.7); Neutrophils Percent Auto 59.6 % (45.5-73.1); Platelet Count Result 177 k/mm3 (150-375); Red Blood Count 4.21 M/mm3 (4.2-5.4); Red Cell Distribution Width 14.7 % (11.5-14.5); White Blood Count 5.2 K/mm3 (4.5-10.0)
[2019-10-16 05:27] LABS: Blood Urea Nitrogen 17 mg/dL (7-17); Calcium 8.4 mg/dL (8.4-10.2); Carbon Dioxide 27 mmol/L (22-30); Chloride 102 mmol/L (98-107); Estimated CRCL calculation 52 ml/min; Estimated Glomerular Filt Rate > 60; Glucose 103 mg/dL (65-105); Potassium 3.6 mmol/L (3.4-5.0); Sodium 141 mmol/L (137-145)
[2019-10-16 06:00] VITALS: BP 125/71; PULSE 94; RESP 17; TEMP 36.6; O2SAT 97
[2019-10-16 08:00] VITALS: PULSE 94; RESP 17; O2SAT 97
[2019-10-16] MEDS: AMLODIPINE BESYLATE 5 MG TABLET PO (09:20)
--- NOTE | 2019-10-16 13:26 | PCDIET ---
Nutrition Follow-Up Complete: Suboptimal oral intake related to decreased appetite as evidenced by intake of 25% x 1, patient statements. Patient to consume 50% of meals or more Goal met. Pt consuming average of 80% of meals. Nutrition recommendation: Recommend continuation of Regular diet to maximize pt's nutrient intake. Last recorded weight is 90 kg. Bowel Motility:+BM 3/3 Labs Reviewed:Ca(8.4), Na(141), K(3.6), BUN(17), Cr(0.9), Glu(103) Meds Noted:Norvasc, Miralax, Lovenox Additional Notes: Pt states appetite is good, has increased since admission. No GI related complaints. Provided stroke MNT ed to pt. Follow up in 5 days.
[2019-10-16 14:00] VITALS: BP 134/79; PULSE 98; RESP 18; TEMP 36.7; O2SAT 99
--- NOTE | 2019-10-16 14:03 | PCNSR ---
On 10/16/19, the student, [Jessenia Abel ], provided care and completed [facility] documentation on this patient. I have reviewed the student's documentation and agree with the findings.
--- NOTE | 2019-10-16 14:09 | WPDNEURORHBP ---
Subjective Date/time seen: 10/16/19 14:09 Interval history: this 74-year-old Afro-[place] woman is here after having had a stroke affecting the left side of the brain giving her speech difficulties and right-sided hemiparesis from which she is improving slowly she is able to read and write but has some some hesitation of the speech which she is engage in therapy for She denies any further neurological symptoms no headaches no chest pain no shortness of breath nausea vomiting fevers chills sore throat or bladder or bowel dysfunction Review of Systems Review of Systems: All systems reviewed & are unremarkable except as noted in HPI and below Functional Status Ambulation Ability Ability to Ambulate 10 Feet: Moderate Assistance X 1 Ambulation Assistive Devices: Walker, Wheeled Transfers Ability Ability to Transfer In/Out of Chair: Minimum Assistance X 1 Exam Const: General: comfortable and no acute distress HENMT: General nose exam: Normal nares present Mouth: Yes moist mucous membranes Eyes: General: appearance normal, both eyes and all related structures Neck: Neck: supple and no JVD Resp: Effort & Inspection: normal respiratory effort Auscultation: clear to auscultation bilaterally Cardio: Rate: regular rate Rhythm: regular rhythm GI: GI Palp: Yes Soft to palpation Auscultation: normal bowel sounds Skin: General skin exam: normal color and no rashes or lesions noted Neuro: Other: patient is awake and alert and well oriented in time place and person is speech is little hesitant otherwise fairly decent and improved likewise the right-sided hemiparesis has improved but is still needs some work to be done Extrem: General: normal to inspection Psych: Mental Status: mental status grossly normal Objective Data Vital Signs Vital Signs: Vital Signs - 24 hr 10/15/19 22:00 10/16/19 06:00 10/16/19 08:00 Temperature 37.1 C 36.6 C Pulse Rate 94 94 94 Respiratory Rate 18 17 17 Blood Pressure 133/62 125/71 Pulse Oximetry 99 97 97 Intake/Output Intake/Output: Intake & Output 10/13/19 10/14/19 10/15/19 10/16/19 23:59 23:59 23:59 23:59 Intake Total 700 800 530 240 Balance 700 800 530 240 Meds/Results Medications: Active Medications Generic Name Dose Route Start Last Admin Trade Name Freq PRN Reason Stop Dose Admin Acetaminophen 650 mg 10/01/19 17:30 Tylenol Tablet PO Q6H PRN Pain Amlodipine Besylate 5 mg 10/02/19 09:00 10/16/19 09:20 Norvasc PO 5 mg DAILY [facility] Administration Bisacodyl 10 mg 10/01/19 17:30 Dulcolax Suppository RECTAL DAILY PRN Constipation Enoxaparin Sodium 40 mg 10/09/19 14:00 10/15/19 15:27 Lovenox SUB-Q 40 mg Q24H [facility] Administration Polyethylene Glycol 17 gm 10/04/19 09:00 10/16/19 09:21 Miralax PO Not Given QAM [facility] Labs Labs: Laboratory Results - last 24 hr 10/16/19 10/16/19 04:37 04:37 WBC 5.2 RBC 4.21 Hgb 12.2 Hct 37.0 MCV 87.9 MCH 29.0 MCHC 33.0 RDW 14.7 H Plt Count 177 MPV 10.2 Immature Gran % (Auto) 0.4 Neut % (Auto) 59.6 Lymph % (Auto) 31.4 Nelson % (Auto) 8.2 Eos % (Auto) 0.0 Baso % (Auto) 0.4 Lymph # (Auto) 1.64 Nelson # (Auto) 0.4 Eos # (Auto) 0.0 Baso # (Auto) 0.0 Abs Immat Gran (auto) 0.02 Absolute Neuts (auto) 3.1 Absolute Nucleated RBC 0.0 Nucleated RBC % 0.0 Sodium 141 Potassium 3.6 Chloride 102 Carbon Dioxide 27 BUN 17 Creatinine 0.90 Estim Creat Clear Calc 52 Estimated GFR > 60 Glucose 103 Calcium 8.4 Progress Note: A&P Assessment and Plan (1) Hypertension: Code(s): I10 - Essential (primary) hypertension Status: Acute (2) Hemiparesis of right dominant side: Code(s): G81.91 - Hemiplegia, unspecified affecting right dominant side Status: Acute (3) Expressive aphasia: Code(s): R47.01 - Aphasia Status: Acute (4) Intracranial hemorrhage: Code
[2019-10-16] MEDS: ENOXAPARIN 40 MG/0.4 ML SYRINGE SUB-Q (14:31)
--- NOTE | 2019-10-16 15:52 | PCCCNOTE ---
On 10/16/19, the student, [Lino Camarena ], provided care and completed [facility] documentation on this patient. I have reviewed the student's documentation and agree with the findings.
[2019-10-16 21:11] VITALS: BP 110/63; PULSE 91; RESP 18; TEMP 36.2; O2SAT 100
[2019-10-17 06:00] VITALS: BP 119/71; PULSE 87; RESP 18; TEMP 36.6; O2SAT 98
[2019-10-17 08:00] VITALS: PULSE 87; RESP 18; O2SAT 98
[2019-10-17] MEDS: AMLODIPINE BESYLATE 5 MG TABLET PO (09:23)
--- NOTE | 2019-10-17 10:08 | WPDNEURORHBP ---
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 the speech defect in the right-sided hemiparesis her speech defect and right-sided hemiparesis is improving she is quite happy with the care she does not have any new neurological complaints no headaches no chest pain no shortness of breath no nausea vomiting diarrhea abdominal pain double vision blurred vision or fever chills Review of Systems Review of Systems: All systems reviewed & are unremarkable except as noted in HPI and below Functional Status Ambulation Ability Ability to Ambulate 10 Feet: Moderate Assistance X 1 Ambulation Assistive Devices: Walker, Wheeled Transfers Ability Ability to Transfer In/Out of Chair: Minimum Assistance X 1 Exam Const: General: comfortable and no acute distress HENMT: General nose exam: Normal nares present Mouth: Yes moist mucous membranes Eyes: General: appearance normal, both eyes and all related structures Neck: Neck: supple and no JVD Resp: Effort & Inspection: normal respiratory effort Auscultation: clear to auscultation bilaterally Cardio: Rate: regular rate Rhythm: regular rhythm GI: GI Palp: Yes Soft to palpation Auscultation: normal bowel sounds Skin: General skin exam: normal color and no rashes or lesions noted Neuro: Other: patient is speech and language functions are quite and much better and closer to being at the baseline than ever before right-sided hemiparesis is also improving and she is happy with the improvement she sees Extrem: General: normal to inspection Psych: Mental Status: mental status grossly normal Objective Data Vital Signs Vital Signs: Vital Signs - 24 hr 10/16/19 14:00 10/16/19 21:11 10/17/19 06:00 Temperature 36.7 C 36.2 C L 36.6 C Pulse Rate 98 91 87 Respiratory Rate 18 18 18 Blood Pressure 134/79 110/63 119/71 Pulse Oximetry 99 100 98 10/17/19 08:00 Temperature Pulse Rate 87 Respiratory Rate 18 Blood Pressure Pulse Oximetry 98 Intake/Output Intake/Output: Intake & Output 10/14/19 10/15/19 10/16/19 10/17/19 23:59 23:59 23:59 23:59 Intake Total 800 530 480 100 Balance 800 530 480 100 Meds/Results Medications: Active Medications Generic Name Dose Route Start Last Admin Trade Name Freq PRN Reason Stop Dose Admin Acetaminophen 650 mg 10/01/19 17:30 Tylenol Tablet PO Q6H PRN Pain Amlodipine Besylate 5 mg 10/02/19 09:00 10/17/19 09:23 Norvasc PO 5 mg DAILY PAYTON Administration Bisacodyl 10 mg 10/01/19 17:30 Dulcolax Suppository RECTAL DAILY PRN Constipation Enoxaparin Sodium 40 mg 10/09/19 14:00 10/16/19 14:31 Lovenox SUB-Q 40 mg Q24H PAYTON Administration Polyethylene Glycol 17 gm 10/04/19 09:00 10/17/19 09:24 Miralax PO Not Given QAM PAYTON Progress Note: A&P Assessment and Plan (1) Hypertension: Code(s): I10 - Essential (primary) hypertension Status: Acute (2) Hemiparesis of right dominant side: Code(s): G81.91 - Hemiplegia, unspecified affecting right dominant side Status: Acute (3) Expressive aphasia: Code(s): R47.01 - Aphasia Status: Acute (4) Intracranial hemorrhage: Code(s): I62.9 - Nontraumatic intracranial hemorrhage, unspecified Status: Acute Additional Plan we will continue present medical management physical therapy of compression therapy speech therapy and gait training
[2019-10-17 14:00] VITALS: BP 127/78; PULSE 90; RESP 17; TEMP 36.6; O2SAT 100
[2019-10-17] MEDS: ENOXAPARIN 40 MG/0.4 ML SYRINGE SUB-Q (14:32)
[2019-10-17 21:42] VITALS: BP 118/69; PULSE 90; RESP 20; TEMP 36.8; O2SAT 100
[2019-10-18 06:00] VITALS: BP 129/70; PULSE 80; RESP 16; TEMP 36.4; O2SAT 99
[2019-10-18] MEDS: AMLODIPINE BESYLATE 5 MG TABLET PO (08:32)
[2019-10-18] MEDS: polyethylene glycoL 3350 17 GM POWD.PACK PO (08:33)
--- NOTE | 2019-10-18 11:03 | WPDNEURORHBP ---
Subjective Date/time seen: 10/18/19 11:03 Interval history: this pleasant 74-year-old Afro-Cuban woman is here after suffering from the left hemispheric intracranial hemorrhage which has left her with the mixed aphasia and right-sided hemiparesis from which she is improving quite a bit and doing remarkably well she denies any headache nausea vomiting double vision blurred vision chest pain shortness of breath fever chills sore throat Review of Systems Review of Systems: All systems reviewed & are unremarkable except as noted in HPI and below Functional Status Ambulation Ability Ability to Ambulate 10 Feet: Moderate Assistance X 1 Ability to Ambulate 50 Feet With 2 Turns: Moderate Assistance X 1 Ambulation Assistive Devices: Walker, Wheeled Transfers Ability Ability to Transfer In/Out of Chair: Minimum Assistance X 1 Exam Const: General: comfortable and no acute distress HENMT: General nose exam: Normal nares present Mouth: Yes moist mucous membranes Eyes: General: appearance normal, both eyes and all related structures Neck: Neck: supple and no JVD Resp: Effort & Inspection: normal respiratory effort Auscultation: clear to auscultation bilaterally Cardio: Rate: regular rate Rhythm: regular rhythm GI: GI Palp: Yes Soft to palpation Auscultation: normal bowel sounds Skin: General skin exam: normal color and no rashes or lesions noted Neuro: Other: she is awake and alert well oriented time place and person her speech is improving overall able to follow all commands understand it quite well she is able to read and write quite well and engage in his speech therapy and PT and OT right-sided hemiparesis improving and she walked up to 50 feet Extrem: General: normal to inspection Psych: Mental Status: mental status grossly normal Objective Data Vital Signs Vital Signs: Vital Signs - 24 hr 10/17/19 14:00 10/17/19 21:42 10/18/19 06:00 Temperature 36.6 C 36.8 C 36.4 C Pulse Rate 90 90 80 Respiratory Rate 17 20 16 Blood Pressure 127/78 118/69 129/70 Pulse Oximetry 100 100 99 Intake/Output Intake/Output: Intake & Output 10/15/19 10/16/19 10/17/19 10/18/19 23:59 23:59 23:59 23:59 Intake Total 530 480 345 240 Balance 530 480 345 240 Meds/Results Medications: Active Medications Generic Name Dose Route Start Last Admin Trade Name Freq PRN Reason Stop Dose Admin Acetaminophen 650 mg 10/01/19 17:30 Tylenol Tablet PO Q6H PRN Pain Amlodipine Besylate 5 mg 10/02/19 09:00 10/18/19 08:32 Norvasc PO 5 mg DAILY PAYTON Administration Bisacodyl 10 mg 10/01/19 17:30 Dulcolax Suppository RECTAL DAILY PRN Constipation Enoxaparin Sodium 40 mg 10/09/19 14:00 10/17/19 14:32 Lovenox SUB-Q 40 mg Q24H PAYTON Administration Polyethylene Glycol 17 gm 10/04/19 09:00 10/18/19 08:33 Miralax PO 17 gm QAM PAYTON Administration Progress Note: A&P Assessment and Plan (1) Hypertension: Code(s): I10 - Essential (primary) hypertension Status: Acute (2) Hemiparesis of right dominant side: Code(s): G81.91 - Hemiplegia, unspecified affecting right dominant side Status: Acute (3) Expressive aphasia: Code(s): R47.01 - Aphasia Status: Acute (4) Intracranial hemorrhage: Code(s): I62.9 - Nontraumatic intracranial hemorrhage, unspecified Status: Acute Additional Plan we will continue present medical management PT OT and gait training along with speech
[2019-10-18 14:00] VITALS: BP 138/75; PULSE 99; RESP 20; TEMP 36.4; O2SAT 99
[2019-10-18] MEDS: ENOXAPARIN 40 MG/0.4 ML SYRINGE SUB-Q (16:39)
[2019-10-18 21:58] VITALS: BP 99/42; PULSE 91; RESP 16; TEMP 36.6; O2SAT 99
[2019-10-19 06:00] VITALS: BP 115/72; PULSE 81; RESP 16; TEMP 36.5; O2SAT 98
[2019-10-19 09:04] VITALS: BP 125/72; PULSE 100
[2019-10-19] MEDS: AMLODIPINE BESYLATE 5 MG TABLET PO (09:06)
--- NOTE | 2019-10-19 13:42 | PCDIET ---
Nutrition Follow-Up Complete: Nutrition Diagnosis: Suboptimal oral intake related to decreased appetite as evidenced by intake of 25% x 1, patient statements. Nutrition Goal: Patient to consume 50% of meals or more Goal met. Patient consuming 100% of most meals on regular diet. Recommend heart healthy diet mcc to reduce risk of future CVA. Last recorded weight is 90 kg. Recommend obtaining new weight. Bowel Motility: Last documented bowel movement on 10/18/19. Labs Reviewed: No new BMP. Meds Noted: Norvasc, Miralax prn, Dulcolax prn Additional Notes: No documented skin breakdown. Will continue to monitor with same goal. Nutrition Monitoring and Evaluation: Follow up in 7 days.
[2019-10-19 14:00] VITALS: BP 129/65; PULSE 87; RESP 18; TEMP 36.6; O2SAT 96
[2019-10-19] MEDS: ENOXAPARIN 40 MG/0.4 ML SYRINGE SUB-Q (14:26)
--- NOTE | 2019-10-19 14:32 | WPDNEURORHBP ---
Subjective Date/time seen: 10/19/19 14:32 Interval history: this pleasant 74-year-old Afro-Moldovan woman is here on the acute rehab after having had left hemispheric intracranial hemorrhage she is doing remarkably well and has improved in her speech functions and also improving the right-sided hemiparesis The patient denies any headache nausea vomiting chest pain shortness of breath abdominal pain and fever chills or sore throat Review of Systems Review of Systems: All systems reviewed & are unremarkable except as noted in HPI and below Functional Status Ambulation Ability Ability to Ambulate 10 Feet: Minimum Assistance X 1 Ability to Ambulate 50 Feet With 2 Turns: Minimum Assistance X 1 Ambulation Assistive Devices: Walker, Wheeled Transfers Ability Ability to Transfer In/Out of Chair: Minimum Assistance X 1 Exam Const: General: comfortable and no acute distress HENMT: General nose exam: Normal nares present Mouth: Yes moist mucous membranes Eyes: General: appearance normal, both eyes and all related structures Neck: Neck: supple and no JVD Resp: Effort & Inspection: normal respiratory effort Auscultation: clear to auscultation bilaterally Cardio: Rate: regular rate Rhythm: regular rhythm GI: GI Palp: Yes Soft to palpation Auscultation: normal bowel sounds Skin: General skin exam: normal color and no rashes or lesions noted Neuro: Other: the patient is awake and alert will oriented in time place and person and apart from little hesitant speech she is doing remarkably well as for the speech and language function are concerned likewise the cranial examination has improved also and also the right-sided hemiparesis and she is walking more 70 feet looking forward to be going home soon Extrem: General: normal to inspection Psych: Mental Status: mental status grossly normal Objective Data Vital Signs Vital Signs: Vital Signs - 24 hr 10/18/19 21:58 10/19/19 06:00 10/19/19 09:04 Temperature 36.6 C 36.5 C Pulse Rate 91 81 100 Respiratory Rate 16 16 Blood Pressure 99/42 L 115/72 125/72 Pulse Oximetry 99 98 Intake/Output Intake/Output: Intake & Output 10/16/19 10/17/19 10/18/19 10/19/19 23:59 23:59 23:59 23:59 Intake Total 480 345 600 480 Balance 480 345 600 480 Meds/Results Medications: Active Medications Generic Name Dose Route Start Last Admin Trade Name Freq PRN Reason Stop Dose Admin Acetaminophen 650 mg 10/01/19 17:30 Tylenol Tablet PO Q6H PRN Pain Amlodipine Besylate 5 mg 10/02/19 09:00 10/19/19 09:06 Norvasc PO 5 mg DAILY PAYTON Administration Bisacodyl 10 mg 10/01/19 17:30 Dulcolax Suppository RECTAL DAILY PRN Constipation Enoxaparin Sodium 40 mg 10/09/19 14:00 10/19/19 14:26 Lovenox SUB-Q 40 mg Q24H PAYTON Administration Polyethylene Glycol 17 gm 10/19/19 10:09 Miralax PO DAILY PRN Constipation Progress Note: A&P Assessment and Plan (1) Hypertension: Code(s): I10 - Essential (primary) hypertension Status: Acute (2) Hemiparesis of right dominant side: Code(s): G81.91 - Hemiplegia, unspecified affecting right dominant side Status: Acute (3) Expressive aphasia: Code(s): R47.01 - Aphasia Status: Acute (4) Intracranial hemorrhage: Code(s): I62.9 - Nontraumatic intracranial hemorrhage, unspecified Status: Acute Additional Plan we will continue present medical management physical therapy of compression therapy and gait training and hoping to discontinue her Lovenox soon improve her on aspirin for secondary stroke prevention
[2019-10-19 22:00] VITALS: BP 130/72; PULSE 100; RESP 18; TEMP 36.6; O2SAT 97
[2019-10-20 06:00] VITALS: BP 131/82; PULSE 90; RESP 18; TEMP 36.7; O2SAT 98
[2019-10-20] MEDS: AMLODIPINE BESYLATE 5 MG TABLET PO (08:02)
[2019-10-20 14:00] VITALS: BP 128/53; PULSE 100; RESP 20; TEMP 36.6; O2SAT 99
[2019-10-20] MEDS: ENOXAPARIN 40 MG/0.4 ML SYRINGE SUB-Q (14:14)
[2019-10-20 22:00] VITALS: BP 118/67; PULSE 87; RESP 18; TEMP 36.5; O2SAT 98
--- NOTE | 2019-10-21 03:24 | PC.NURSE ---
Daylight Savings Time For Daylight Savings Time Ending in the Fall - Clocks are moved back. For Daylight Savings Time Beginning in the Spring - Clocks are moved ahead. For [facility], the time of change occurs at 0200 hrs. Time is taken from the field observer. This entry on the patient's chart recognizes the change in time reflected during documentation. Example: 2 entries for vital signs may be charted for 0200 hrs.
[2019-10-21 06:00] VITALS: BP 118/69; PULSE 87; RESP 17; TEMP 36.3; O2SAT 96
[2019-10-21] MEDS: AMLODIPINE BESYLATE 5 MG TABLET PO (08:41)
--- NOTE | 2019-10-21 14:25 | WPDNEURORHBP ---
Subjective Date/time seen: 10/21/19 14:25 Interval history: this pleasant 74-year-old Afro-Guatemalan woman is recuperating on the acute rehab after suffering from left hemispheric intracranial hemorrhage the right-sided hemiparesis is improving right-sided neglect has improved her speech limited function has definitely improved she denies any headache nausea vomiting chest pain shortness of breath and overall she has walked about to attend feet total today Review of Systems Review of Systems: All systems reviewed & are unremarkable except as noted in HPI and below Functional Status Ambulation Ability Ability to Ambulate 10 Feet: Minimum Assistance X 1 Ability to Ambulate 50 Feet With 2 Turns: Minimum Assistance X 1 Ambulation Assistive Devices: Walker, Wheeled Transfers Ability Ability to Transfer In/Out of Chair: Minimum Assistance X 1 Exam Const: General: comfortable and no acute distress HENMT: General nose exam: Normal nares present Mouth: Yes moist mucous membranes Eyes: General: appearance normal, both eyes and all related structures Neck: Neck: supple and no JVD Resp: Effort & Inspection: normal respiratory effort Auscultation: clear to auscultation bilaterally Cardio: Rate: regular rate Rhythm: regular rhythm GI: GI Palp: Yes Soft to palpation Auscultation: normal bowel sounds Skin: General skin exam: normal color and no rashes or lesions noted Neuro: Other: patient is awake and alert and well oriented time place and person speech language functions are normal cranial examination is normal right-sided hemiparesis has much improved discharge planning is for early next week Extrem: General: normal to inspection Psych: Mental Status: mental status grossly normal Objective Data Vital Signs Vital Signs: Vital Signs - 24 hr 10/20/19 14:00 10/20/19 22:00 10/21/19 06:00 Temperature 36.6 C 36.5 C 36.3 C L Pulse Rate 100 87 87 Respiratory Rate 20 18 17 Blood Pressure 128/53 L 118/67 118/69 Pulse Oximetry 99 98 96 Intake/Output Intake/Output: Intake & Output 10/18/19 10/19/19 10/20/19 10/22/19 23:59 23:59 23:59 00:59 Intake Total 600 720 680 480 Balance 600 720 680 480 Meds/Results Medications: Active Medications Generic Name Dose Route Start Last Admin Trade Name Freq PRN Reason Stop Dose Admin Acetaminophen 650 mg 10/01/19 17:30 Tylenol Tablet PO Q6H PRN Pain Amlodipine Besylate 5 mg 10/02/19 09:00 10/21/19 08:41 Norvasc PO 5 mg DAILY PAYTON Administration Bisacodyl 10 mg 10/01/19 17:30 Dulcolax Suppository RECTAL DAILY PRN Constipation Enoxaparin Sodium 40 mg 10/09/19 14:00 10/20/19 14:14 Lovenox SUB-Q 40 mg Q24H PAYTON Administration Polyethylene Glycol 17 gm 10/19/19 10:09 Miralax PO DAILY PRN Constipation Progress Note: A&P Assessment and Plan (1) Hypertension: Code(s): I10 - Essential (primary) hypertension Status: Acute (2) Hemiparesis of right dominant side: Code(s): G81.91 - Hemiplegia, unspecified affecting right dominant side Status: Acute (3) Expressive aphasia: Code(s): R47.01 - Aphasia Status: Acute (4) Intracranial hemorrhage: Code(s): I62.9 - Nontraumatic intracranial hemorrhage, unspecified Status: Acute Additional Plan patient is what quite a bit so this is about right time for us to discontinue the Lovenox and put her on low-dose aspirin for secondary stroke prevention prior to her discharge rest of the medical management PT OT and gait training as before
[2019-10-21 14:30] VITALS: BP 132/62; PULSE 97; RESP 16; TEMP 36.6; O2SAT 98
[2019-10-21 21:14] VITALS: BP 120/60; PULSE 82; RESP 20; TEMP 36.2; O2SAT 98
[2019-10-22 06:00] VITALS: BP 114/71; PULSE 88; RESP 20; TEMP 36.4; O2SAT 98
[2019-10-22] MEDS: ASPIRIN 81 MG ENTERIC TABLET PO (08:30)
[2019-10-22] MEDS: AMLODIPINE BESYLATE 5 MG TABLET PO (08:30)
[2019-10-22 14:00] VITALS: BP 121/64; PULSE 102; RESP 18; TEMP 36.8; O2SAT 100
[2019-10-22 22:00] VITALS: BP 127/80; PULSE 91; RESP 18; TEMP 36.8; O2SAT 99
[2019-10-23 04:51] LABS: Basophils Percent Auto 0.4 % (0.2-1.2); Hematocrit 36.8 % (37.0-47.0); Hemoglobin 11.9 g/dL (12.0-15.0); Immature Granulocyte Absolute 0.01 K/mm3 (0.00-0.031); Immature Granulocyte Percent A 0.2 % (0-0.5); Lymphocytes Absolute Auto 1.77 K/mm3 (0.9-3.2); Lymphocytes Percent Auto 33.9 % (18.3-44.2); Mean Corpuscular HGB Conc 32.3 g/dl (32-36); Mean Corpuscular Hemoglobin 28.4 pg (26-34); Mean Corpuscular Volume 87.8 fl (80-100); Mean Platelet Volume 10.4 fl (7.4-10.4); Monocytes Absolute Auto 0.5 K/mm3 (0.1-0.6); Monocytes Percent Auto 8.6 % (2.6-8.5); Neutrophils Percent Auto 56.9 % (45.5-73.1); Platelet Count Result 163 k/mm3 (150-375); Red Blood Count 4.19 M/mm3 (4.2-5.4); Red Cell Distribution Width 14.6 % (11.5-14.5); White Blood Count 5.2 K/mm3 (4.5-10.0)
[2019-10-23 05:08] LABS: Blood Urea Nitrogen 15 mg/dL (7-17); Calcium 8.6 mg/dL (8.4-10.2); Carbon Dioxide 27 mmol/L (22-30); Chloride 106 mmol/L (98-107); Estimated CRCL calculation 58 ml/min; Estimated Glomerular Filt Rate > 60; Glucose 100 mg/dL (65-105); Potassium 3.4 mmol/L (3.4-5.0); Sodium 138 mmol/L (137-145)
[2019-10-23 06:00] VITALS: BP 134/81; PULSE 93; RESP 17; TEMP 36.6; O2SAT 96
[2019-10-23] MEDS: AMLODIPINE BESYLATE 5 MG TABLET PO (09:37)
[2019-10-23] MEDS: ASPIRIN 81 MG ENTERIC TABLET PO (09:37)
--- NOTE | 2019-10-23 11:36 | WPDNEURORHBP ---
Subjective Date/time seen: 10/23/19 11:36 Interval history: this 74-year-old Afro-Mosotho woman is here for acute rehab after sustaining left basal ganglia/ thalamic hemorrhage which had left her with aphasia and right-sided hemiparesis. Her aphasia has significantly improved and likewise the right-sided hemiparesis have improved to a significant degree and we are planning to discharge her tomorrow she does not have any specific complaint particularly denies any headache nausea vomiting chest pain shortness of breath fever chills or sore throat Review of Systems Review of Systems: All systems reviewed & are unremarkable except as noted in HPI and below Functional Status Ambulation Ability Ability to Ambulate 10 Feet: Contact Guard Ability to Ambulate 50 Feet With 2 Turns: Contact Guard Ambulation Assistive Devices: Walker, Wheeled Transfers Ability Ability to Transfer In/Out of Chair: Minimum Assistance X 1 Exam Const: General: comfortable and no acute distress HENMT: General nose exam: Normal nares present Mouth: Yes moist mucous membranes Eyes: General: appearance normal, both eyes and all related structures Neck: Neck: supple and no JVD Resp: Effort & Inspection: normal respiratory effort Auscultation: clear to auscultation bilaterally Cardio: Rate: regular rate Rhythm: regular rhythm GI: GI Palp: Yes Soft to palpation Auscultation: normal bowel sounds Skin: General skin exam: normal color and no rashes or lesions noted Neuro: Other: the speech and language functions are close to being normal her right-sided hemiparesis have improved and she has been walking quite a bit of course with the assistance and will be ready to be discharged tomorrow Extrem: General: normal to inspection Psych: Mental Status: mental status grossly normal Objective Data Vital Signs Vital Signs: Vital Signs - 24 hr 10/22/19 14:00 10/22/19 22:00 10/23/19 06:00 Temperature 36.8 C 36.8 C 36.6 C Pulse Rate 102 H 91 93 Respiratory Rate 18 18 17 Blood Pressure 121/64 127/80 134/81 Pulse Oximetry 100 99 96 Intake/Output Intake/Output: Intake & Output 10/20/19 10/21/19 10/22/19 10/23/19 22:59 23:59 23:59 23:59 Intake Total 720 200 Balance 720 200 Meds/Results Medications: Active Medications Generic Name Dose Route Start Last Admin Trade Name Freq PRN Reason Stop Dose Admin Acetaminophen 650 mg 10/01/19 17:30 Tylenol Tablet PO Q6H PRN Pain Amlodipine Besylate 5 mg 10/02/19 09:00 10/23/19 09:37 Norvasc PO 5 mg DAILY PAYTON Administration Aspirin 81 mg 10/22/19 09:00 10/23/19 09:37 Aspirin Ec PO 81 mg QAM PAYTON Administration Bisacodyl 10 mg 10/01/19 17:30 Dulcolax Suppository RECTAL DAILY PRN Constipation Polyethylene Glycol 17 gm 10/19/19 10:09 Miralax PO DAILY PRN Constipation Labs Labs: Laboratory Results - last 24 hr 10/23/19 10/23/19 04:42 04:42 WBC 5.2 RBC 4.19 L Hgb 11.9 L Hct 36.8 L MCV 87.8 MCH 28.4 MCHC 32.3 RDW 14.6 H Plt Count 163 MPV 10.4 Immature Gran % (Auto) 0.2 Neut % (Auto) 56.9 Lymph % (Auto) 33.9 Kendall % (Auto) 8.6 H Eos % (Auto) 0.0 Baso % (Auto) 0.4 Lymph # (Auto) 1.77 Kendall # (Auto) 0.5 Eos # (Auto) 0.0 Baso # (Auto) 0.0 Abs Immat Gran (auto) 0.01 Absolute Neuts (auto) 3.0 Absolute Nucleated RBC 0.0 Nucleated RBC % 0.0 Sodium 138 Potassium 3.4 Chloride 106 Carbon Dioxide 27 BUN 15 Creatinine 0.80 Estim Creat Clear Calc 58 Estimated GFR > 60 Glucose 100 Calcium 8.6 Progress Note: A&P Assessment and Plan (1) Hypertension: Code(s): I10 - Essential (primary) hypertension Status: Acute (2) Hemiparesis of right dominant side: Code(s): G81.91 - Hemiplegia, unspecified affecting right dominant side Status: Acute (3) Expressive aphasia: Code(s): R47.01 - Aphasia Status: Acut
[2019-10-23 14:00] VITALS: BP 127/80; PULSE 90; RESP 16; TEMP 36.8; O2SAT 96
[2019-10-23 22:00] VITALS: BP 116/60; PULSE 94; RESP 17; TEMP 37.1; O2SAT 100
[2019-10-24 06:00] VITALS: BP 119/77; PULSE 85; RESP 18; TEMP 36.7; O2SAT 96
[2019-10-24] MEDS: AMLODIPINE BESYLATE 5 MG TABLET PO (08:43)
[2019-10-24] MEDS: ASPIRIN 81 MG ENTERIC TABLET PO (08:43)
--- NOTE | 2019-10-24 12:27 | WPDNEURORHBP ---
Subjective Date/time seen: 10/24/19 12:27 Interval history: this 74-year-old Afro-Martiniquais woman is ready to be discharged this afternoon after recovering remarkably well having had left-sided or left hemispheric intracranial hemorrhage with the speech defect and right-sided hemiparesis the goals have been achieved and she will be going home the medications have been reconciled the patient does not have any new complaints looking forward to go home particularly denying any headache nausea vomiting chest pain shortness of breath fever chills sore throat or urinary issues Review of Systems Review of Systems: All systems reviewed & are unremarkable except as noted in HPI and below Functional Status Ambulation Ability Ability to Ambulate 10 Feet: Contact Guard Ability to Ambulate 50 Feet With 2 Turns: Contact Guard Ambulation Assistive Devices: Walker, Wheeled Transfers Ability Ability to Transfer In/Out of Chair: Minimum Assistance X 1 Exam Const: General: comfortable and no acute distress HENMT: General nose exam: Normal nares present Mouth: Yes moist mucous membranes Eyes: General: appearance normal, both eyes and all related structures Neck: Neck: supple and no JVD Resp: Effort & Inspection: normal respiratory effort Auscultation: clear to auscultation bilaterally Cardio: Rate: regular rate Rhythm: regular rhythm GI: GI Palp: Yes Soft to palpation Auscultation: normal bowel sounds Skin: General skin exam: normal color and no rashes or lesions noted Neuro: Other: patient is awake and alert well oriented time place and person the speech language functions are normal with some has a 10 she of the speech which is the residual from the left-sided intracranial hemorrhage her right-sided hemiparesis have also improved to a significant degree and she will be followed by the home health at home Extrem: General: normal to inspection Psych: Mental Status: mental status grossly normal Objective Data Vital Signs Vital Signs: Vital Signs - 24 hr 10/23/19 14:00 10/23/19 22:00 10/24/19 06:00 Temperature 36.8 C 37.1 C 36.7 C Pulse Rate 90 94 85 Respiratory Rate 16 17 18 Blood Pressure 127/80 116/60 119/77 Pulse Oximetry 96 100 96 Intake/Output Intake/Output: Intake & Output 10/21/19 10/22/19 10/23/19 10/24/19 23:59 23:59 23:59 23:59 Intake Total 720 600 240 Balance 720 600 240 Meds/Results Medications: Active Medications Generic Name Dose Route Start Last Admin Trade Name Freq PRN Reason Stop Dose Admin Acetaminophen 650 mg 10/01/19 17:30 Tylenol Tablet PO Q6H PRN Pain Amlodipine Besylate 5 mg 10/02/19 09:00 10/24/19 08:43 Norvasc PO 5 mg DAILY PAYTON Administration Aspirin 81 mg 10/22/19 09:00 10/24/19 08:43 Aspirin Ec PO 81 mg QAM PAYTON Administration Bisacodyl 10 mg 10/01/19 17:30 Dulcolax Suppository RECTAL DAILY PRN Constipation Polyethylene Glycol 17 gm 10/19/19 10:09 Miralax PO DAILY PRN Constipation Progress Note: A&P Assessment and Plan (1) Hypertension: Code(s): I10 - Essential (primary) hypertension Status: Acute (2) Hemiparesis of right dominant side: Code(s): G81.91 - Hemiplegia, unspecified affecting right dominant side Status: Acute (3) Expressive aphasia: Code(s): R47.01 - Aphasia Status: Acute (4) Intracranial hemorrhage: Code(s): I62.9 - Nontraumatic intracranial hemorrhage, unspecified Status: Acute Additional Plan the patient is to be discharged today with recommendations for the follow-up with the primary care physician and also the Neurology at the tertiary care facility where she was initially treated
--- NOTE | 2019-10-27 15:06 | DS_ITS ---
DATE OF DISCHARGE: 10/24/2019 DISCHARGE ACUTE REHAB DIAGNOSIS: Primary rehab impairment category 01 is stroke. 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 DISCHARGE ACTIVE COMORBID CONDITIONS: Hypertension. REASON FOR ADMISSION: This 74 years old right-handed female with past medical history of hypertension, presented to local hospital with complaint of slurred speech and right-sided weakness. The patient's daughter reported the patient was found on the ground outside her house. Initial CT scan documented intraparenchymal hemorrhage with intraventricular extension. She was transferred to [facility] on 09/24/2019. Repeat CT scan confirmed hemorrhage involving the left sheppard radiata, left basal ganglia, thalamic hemorrhage, and intraventricular extension with minimal rightward shift and mild mass effect. CTA revealed no evidence of vascular abnormality. Neurosurgical service was consulted. The patient was started on Keppra 500 mg twice a day for seizure prophylaxis. She was also started on new antihypertensive medication. She was admitted to ICU for neuro-checks and hydrocephalus watch. She was eventually taken off the seizure prophylaxis. She passed a bedside swallow test and was placed on the regular diet. She would medically require the blood pressure monitoring in the setting of brain hemorrhage with the possibly extension edema and herniation. She continued to show the right-sided weakness, balance impairment, dysarthria, expressive dysphagia, and gross motor control deficiency. Therapy was initiated in the acute care facility and the patient was transferred to us from the [facility] on October 01, 2019. LEVE OF FUNCTION AT THE TIME OF ADMISSION: The patient required setup for eating, supervision for oral hygiene. She was dependent for toileting, has required substantial assistance for bathing, partial assistance for upper body dressing. She was dependent for lower body dressing, footwear. She required partial assistance for rolling in bed. She required substantial assistance for sit to lying, lying to sitting. She was independent for sit to stand, chair transfer, and toilet transfer. She was unable to car transfer, walking 10 feet, 50 feet with 2 turns, walking 150 feet, 10 feet on uneven surfaces, curb or step, 4 steps, 12 steps, picking up object, wheelchair 50 feet or 150 feet. ANTICIPATED REHAB GOALS AT THE TIME OF ADMISSION: Were to make her independent eating and oral hygiene, required partial assistance for toileting and bathing, setup for the upper body dressing, partial assistance for lower body dressing and footwear, setup for the rolling in bed, supervision for sit to lying, lying to sitting, partial assistance for sit to stand, chair transfer, toilet transfer, car transfer, walking 10 feet, 50 feet with 2 turns. She was unable to walk 150 feet. She required partial assistance for walking 10 feet on uneven surfaces, curb or step, 4 steps, 12 step, partial assistance for the picking up object, and she will become independent wheelchair for 50 and 150 feet. LEVEL OF FUNCTION AT THE TIME OF DISCHARGE: She became independent in eating and oral hygiene, required supervision for toileting, partial assistance for bathing, independent for upper body dressing, partial for lower body dressing. She required setup for the footwear, she required supervision for rolling in bed, sit to lying, lying to sitting, sit to stand, chair transfer, toilet transfer, and 10 feet walking. She required partial assistance for the car transfer, walking 50 feet with 2 turns. She was unable to walk 150 feet, required partial assistance for walking 10 feet on uneven surfaces, curb or step, 4 steps. She was unable to take 12 steps. She required superv
== END 2019-10-24 15:20 | disposition home health service (06) | DRG 57 ==
PROVIDERS: Admitting Provider Psychiatry & Neurology Neurology; Visit Provider Psychiatry & Neurology Neurology
DX: I69.251 Hemiplegia and hemiparesis following other nontraumatic intracranial hemorrhage affecting right dominant side (principal); I69.220 Aphasia following other nontraumatic intracranial hemorrhage; I69.222 Dysarthria following other nontraumatic intracranial hemorrhage; I10 Essential (primary) hypertension; Z96.649 Presence of unspecified artificial hip joint; Z79.82 Long term (current) use of aspirin
CPT/HCPCS: 36415; 80048; 80061; 85025; 87081; 92507; 92523; 97110; 97116; 97140; 97150; 97162; 97166; 97530; 97535; 97542; A9270; J1650